=== PATIENT | female | born 1995 | race Hispanic/Latino ===

== ENCOUNTER 2021-01-17 11:34 | Emergency (ER) | payer BC, OTHER ==
[~2021-01-17] VITALS: Ht 157.5 cm; Wt 59.0 kg
[2021-01-17 11:36] VITALS: BP 136/87
[2021-01-17] MEDS ORDERED: CEPH500B PO (11:59)
[2021-01-17] MEDS ORDERED: CEPHALEXIN 500 MG CAPSULE ONE (11:59)
[2021-01-17] MEDS ORDERED: CEPHALEXIN 500 MG CAPSULE PO SCH (12:00)
== END 2021-01-17 12:24 | disposition home or self-care (01) ==
LOC: EDH 11:34
DX: S50.862A Insect bite (nonvenomous) of left forearm, initial encounter (principal); L03.114 Cellulitis of left upper limb; W57.XXXA Bitten or stung by nonvenomous insect and other nonvenomous arthropods, initial encounter; Y93.89 Activity, other specified; Y92.89 Other specified places as the place of occurrence of the external cause; Y99.8 Other external cause status